=== PATIENT | female | born 1955 | race Caucasian/White ===

== ENCOUNTER 2020-04-18 09:46 | Inpatient (IN) | payer BC ==
[~2020-04-18] VITALS: Ht 165.1 cm; Wt 80.3 kg
[~2020-04-18 09:46] MED LIST: ASPIRIN325 PO; LIPITOR 20 MG T20 M1 PO; NITROGLYCERIN0.4 MG SUBLING; PROTONIX 20 MG20 M1 PO
[2020-04-18 09:47] VITALS: BP 106/64
[2020-04-18 10:14] LABS: ABSOLUTE BASOPHILS 0.1 thou/uL (0.0-0.2); ABSOLUTE EOSINOPHILS 0.1 thou/uL (0.0-0.7); ABSOLUTE LYMPHOCYTES 1.5 thou/uL (0.8-5.3); ABSOLUTE MONOCYTES 0.3 thou/uL (0.0-1.2); ABSOLUTE NEUTROPHILS 4.9 thou/uL (1.6-8.1); EOSINOPHILS 0.9 %; HEMOGLOBIN 14.8 gm/dL (12.0-15.0); LYMPHOCYTES 21.4 %; MCHC 35.4 g/dL (28.0-37.0); MCV 96.2 fL (80.0-100.0); MPV 7.5 fl. (7.2-11.1); NUCLEATED RBCS 0 /100WBC; PLATELET COUNT* 251 thou/uL (150-400); POLYS 71.7 %; RBC 4.36 mil/uL (4.20-5.00); RDW-CV 13.3 % (10.5-14.5); WBC 6.8 thou/uL (4.0-11.0)
[2020-04-18 10:34] LABS: CALCIUM 8.1 mg/dL (8.5-10.1); CREATININE 0.8 mg/dL (0.6-1.3); POTASSIUM 4.3 mmol/L (3.5-5.1)
[2020-04-18 10:48] LABS: APTT 26.3 Seconds (25.0-31.3); PROTIME 10.3 Seconds (9.20-11.50)
[2020-04-18 10:51] LABS: ALBUMIN 3.3 g/dL (3.4-5.0); TOTAL BILIRUBIN 0.5 mg/dL (<0.1-1.0); TOTAL PROTEIN 6.6 g/dL (6.4-8.2)
[2020-04-18] MEDS ORDERED: PREMARIN0.625 MG PO (10:59)
[2020-04-18 12:10] VITALS: BP 100/61
--- NOTE | 2020-04-18 17:12 | EKG ---
[place] [address] ELECTROCARDIOGRAM REPORT Name: CARTERSERGEI PHILIP Room: [address] ADM IN .R.#: [id number] Admission: 04/18/20 Attend Phys: William Agustin, Discharge: Date of : 57 Date of Service: 04/18/20 1003 Report #: [id number] THIS REPORT FOR: //name// [facility] ED Test Date: 2020-04-18 Test Time: 10:03:46 Pat Name: SERGEI CARTER Department: Room: [facility] Gender: F Deck Scaler: OVI : 1955 Requested By: Nathan Valverde Order Number: [id number] MD: Aris Knight Measurements Intervals [place] Rate: 75 P: 29 [place]: 182 QRS: 63 QRSD: 99 T: 105 QT: 444 QTc: 496 Interpretive Statements Sinus rhythm Borderline prolonged QT interval Baseline wander in lead(s) I,II,aVR,aVL Compared to ECG 05/01/2017 21:46:24 No significant changes Electronically Signed On 04-18-2020 17:12:14 CDT by Aris Knight [email or web address] <ELECTRONICALLY SIGNED> By: Aris Knight MD, FAC 04/18/20 1712 02 100 Aris Knight MD, FAC /EPI
[2020-04-18 17:19] VITALS: BP 104/61
[2020-04-18 20:00] VITALS: BP 91/59
[2020-04-19] VITALS (15 sets, daily range): BP systolic 97–146; BP diastolic 55–93
[2020-04-19 05:12] LABS: HEMATOCRIT 39.1 % (37.0-47.0); HEMOGLOBIN 13.7 gm/dL (12.0-15.0); MCHC 35.1 g/dL (28.0-37.0); MCV 96.9 fL (80.0-100.0); RBC 4.03 mil/uL (4.20-5.00); RDW-CV 13.7 % (10.5-14.5); WBC 9.9 thou/uL (4.0-11.0)
[2020-04-19 05:13] LABS: ANION GAP 7 mmol/L (7-16); BUN 14 mg/dL (7-18); CALCIUM 8.2 mg/dL (8.5-10.1); CHLORIDE 104 mmol/L (98-107); CO2 28 mmol/L (21-32); GLUCOSE 92 mg/dL (70-99); POTASSIUM 3.6 mmol/L (3.5-5.1); SODIUM 139 mmol/L (136-145)
[2020-04-19 05:18] LABS: CHOLESTEROL 187 mg/dL (<200); HDL CHOLESTEROL 49 mg/dL (>40); LDL CHOLESTEROL 117 mg/dL (<100); MAGNESIUM 1.8 mg/dL (1.8-2.4); TC:HDL 3.8 Ratio (Not establshd); TRIGLYCERIDE 106 mg/dL (<150); VLDL 21 mg/dL (<40)
[2020-04-19 05:22] LABS: SERUM ASSESSMENT CLEAR
--- NOTE | 2020-04-19 15:12 | CARD ---
[address] [address] CARDIAC CATH REPORT Name: CARTERSERGEI CASTAÑEDA PHILIP Room: [address] ADM IN [facility]#: [id number] Admission: 04/18/20 Attend Phys: William Agustin MD Discharge: Date of : 57 Report #: [id number] THIS REPORT FOR: //name// cc: Анна Lambert MD, Ghazal A. MD ~ APPROVED REPORT Study performed: 04/19/2020 08:15:27 Patient Details Patient Status: In-Patient Room #: The patient is a 65 year-old female Event Personnel Aris Knight Bicycle Inspector, Obie Conteh RN Mandarin Chinese Teacher, Justa Martin RTR Monitor, Deena Winter RTR Scrub, Maggi Rodgers RN Monitor Procedures Performed Art Access - R femoral artery, Left Heart Cath w/or w/o Coronaries , FREDI Place w/wo Plasty Single LAD, Hemostasis w/ Angioseal Indication Non-STEMI Risk Factors Hypercholesterolemia, Tobacco History () Admission/Lab Medications/Medications given during procedure Angiomax IV 12 ml, Angiomax Drip IV 28.01 ml per hr, Aggrastat IV 8.1 ml, Aggrastat IV 14.42 ml per hr, Aspirin PO 162 mg, Effient PO 60 mg Procedure Narrative The patient was brought electively to the Cardiac Catheterization Laboratory and was prepped and draped in a sterile manner. The right femoral was infiltrated with 2% Lidocaine subcutaneous anesthesia. A [place] 6 FR sheath was inserted into the right femoral artery. Coronary angiography was performed using coronary diagnostic catheters. The right coronary system was accessed and visualized with a 6F JR4 catheter. The left coronary system was accessed and visualized with a 6F JL4 catheter. The left ventricle was accessed and visualized with a 5F Straight Pigtail catheter. Left ventricular/Aortic Valve gradient assessed [place] [address] CARDIAC CATH REPORT Name: SERGEI CARTER Room: [address] IN ..#: [id number] Admission: 04/18/20 Attend Phys: William Agustin MD Discharge: Date of : 57 Report #: [id number] Left ventriculogram was performed in GASTELUM projection. Pre-demployment femoral angiogram was performed . Closure device was deployed with a 6 Fr Angioseal STS 6Fr. The patient tolerated the procedure well and there were no complications associated with the procedure. There was no hematoma. Intraoperative Conscious Sedation Sedation start time: 09:42 Case end Time: 11:23 Fentanyl 75 mcg Versed 3 mg Fluoro Time: 29.5 minutes Dose: DAP 848301 cGycm2 2709.73 mGy Contrast Type and Amount: Visipaque 350 ml Coronary Angiography The patient's coronary anatomy is right dominant. Diagnostic Cath Left Main 0% narrowing LAD 75% proximal with 95% mid LAD stenosis, the mid LAD lesion characterized by an ulcerated plaque with local thrombus at the site Circumflex 90% mid and distal circumflex stenosis Right Coronary Large dominant vessel with 80% proximal and 40% distal stenosis Left Ventriculography The left ventricle is normal in size with normal contractility. The left ventricular ejection fraction is estimated to be 60%. Left ventricular wall motion abnormalities are not present. There is no mitral insufficiency. Hemodynamics The aortic pressure is 110/59 mmHg with a mean of 80 mmHg. The left ventricular pressure is 111/-3 mmHg with a mean of mmHg. The left ventricular end diastolic pressure is 12 mmHg. There was no gradient across the aortic valve upon pullback. Pullback from the left ventricle to the aorta revealed no gradient across the aortic valve. PCI Technique Lesion Anticoagulation was achieved with Angiomax Drip. Patient was preloaded with Angiomax IV 12 ml. Percutaneous coronary intervention was performed on the mid left anterior descending artery segment. The lesion stenosis prior to intervention was 95% with VIRI 3 flow. A 6[place] [address] CARDIAC CATH REPORT Name: EMMASERGEIALBER PALACIOS Room: [address] IN M.R.#: [id number] Admission: 04/18/20 Attend Phys: William Agustin MD Discharge: Date of : 57 Report #: [id number] XB LAD 3.5 Guide Catheter was used to engage the lm ostium. A ProwaterFlex 180CM Interventional Guidewire was used to cross the lesion. BALLOON DILATION A Balloon catheter Mini Trek RX 2.0 X 12 was inserted and inflated up to 10.00atm for 13seconds. Additional Inflation: 18.00atm for 11seconds. NC Euphora balloon catheter inserted and inflated up to 14 sam for 15 seconds. Additional Inflation: 16.00 sam for 11 seconds. Additional Inflation: 16.00 sam for 10 seconds. STENT DEPLOYMENT A drug-eluting stent Xience Sanjana 2.5X15mm was inserted and inflated up to 10.00atm for 13seconds. Additional Inflation: 12.00atm for 7seconds. Additional Inflation: 12.00atm for 7seconds. POST STENT DEPLOYMENT BALLOON DILATION A Balloon catheter NC Euphora 2.5x8 was inserted and inflated up to 14.00atm for 11seconds. Additional Inflation: 15.00atm for 10seconds. Additional Inflation: 16.00atm for 9seconds. Another Drug eluting stent Brennen RX Stent 2.5x12mm was inserted and inflated up to 12.00 sam for 11 seconds. Additional Inflation: 15.00 sam for 11 seconds. Then NC Euphora 2.5x8 was inserted again and inflated up to 15 sam for 10 seconds. Additional Inflation: 17 sam for 7 seconds. Final angiography reveals 10 % stenosis with VIRI 3 flow. COMMENTS PCI to the mid LAD with secondary complex by virtue of the ulcerated plaque in the mid LAD with severe eccentric stenosis and local thrombus at the site with extreme prothrombotic tendency during the procedure PCI Technique Lesion 2 Percutaneous Coronary Intervention was performed on the proximal left anterior descending artery segment. Patient was preloaded with Angiomax IV 12 ml. The lesion stenosis prior to intervention was 75% with VIRI 2 flow. A 6F XB LAD 3.5 Guide Catheter was used to engage the lm ostium. A ProwaterFlex 180CM Interventional Guidewire was used to cross the lesion. Balloon Dilation A Balloon catheter Mini Trek RX 2.0 X 12 was inserted and inflated up to 18.00atm for 12seconds. Additional Inflation: 18.00atm for 10seconds. NC Euphora 2.5x12 balloon catheter was inserted and [facility] [address] [place] [address] CARDIAC CATH REPORT Name: CARTERSERGEIALBER PALACIOS Room: [address] ADM IN M.R.#: [id number] Admission: 04/18/20 Attend Phys: William Agustin MD Discharge: Date of : 57 Report #: [id number] inflated up to 17 sam for 7 seconds Stent Deployment A drug-eluting stent Brennen RX Stent 2.5X12mm was inserted and inflated up to 12.00atm for 9seconds. Additional Inflation: 15.00atm for 9seconds. Post Stent Deployment Balloon Dilation A Balloon catheter NC Euphora 2.5x8 was inserted and inflated up to 18.00atm for 12seconds. Final angiography reveals 0 % stenosis with VIRI 3 flow. Conclusion 1. Recent non-STEMI 2. Severe coronary artery disease characterized by the following: A 75% proximal and 95% eccentric mid LAD stenosis with plaque ulceration and local thrombus at the mid LAD site B 90% mid and distal circumflex narrowings C large dominant right coronary with 80% proximal and 40% distal narrowing 2. Normal left ventricular systolic function, estimated ejection fraction being 60% 3. Normal left-sided hemodynamic study 4. Successful PCI with deployment of sequential drug-eluting stents at the sites of 75% proximal and 95% eccentric mid LAD stenosis with 0 and 10% residual narrowings and VIRI-3 flow to the distal vessel Recommendations Cardiac Rehabilitation Referral Cardiac Risk Reduction Program Medications Administered Aspirin (any) Prasugrel Cardiac Rehabilitation Referral [address] [address] CARDIAC CATH REPORT Name: SERGEI CARTER Room: 006 ADM IN M.R.#: [id number] Admission: 04/18/20 Attend Phys: William Agustin MD Discharge: Date of : 57 Report #: [id number] Diagnostic Cath Approved by: Aris Knight MD Date/Time: 04/19/2020 15:09:20 <ELECTRONICALLY SIGNED> By: Aris Knight MD, FACC 04/19/20 1512 11 1512Jorobi Knight MD, FACC /INF
--- NOTE | 2020-04-19 15:54 | 2DMMODE ---
[place] [address] 2 D/M-MODE ECHOCARDIOGRAM Name: SERGEI CARTER PHILIP Room: [address] ADM IN M.R.#: [id number] Admission: 04/18/20 Attend Phys: William gAustin, Discharge: Date of : 57 Date of Service: 04/19/20 1554 Report #: [id number] THIS REPORT FOR: cc: Анна Lambert MD, Ghazal A. MD Holkins,Aris Wilder MD [facility] ~ APPROVED REPORT Study performed: 04/19/2020 13:56:51 EXAM: Comprehensive 2D, Doppler, and color-flow Echocardiogram Patient Location: Bedside BSA: 1.87 HR: 104 bpm BP: 94/60 mmHg Other Information Study Quality: Technically Limited Technically limited study due to inability to position patient. Indications Chest Pain [place] 2D Dimensions IVSd: 12.18 (7-11mm) LVOT Diam: 18.90 (18-24mm) LVDd: 50.13 mm PWd: 12.89 (7-11mm) Ascending Ao: 29.55 (22-36mm) LVDs: 30.85 (25-40mm) Aortic Root: 33.21 mm Volumes Left Atrial Volume (Systole) LA ESV Index: 31.20 mL/m2 Aortic Valve AoV Peak Yordan.: 1.03 m/s AO Peak Gr.: 4.27 mmHg LVOT Max P.82 mmHg AO Mean Gr.: 2.52 mmHg LVOT Mean P.92 mmHg LVOT Max V: 0.67 m/s AO V2 VTI: 19.84 cm LVOT Mean V: 0.44 m/s DENISSE (VTI): 2.10 cm2 LVOT V1 VTI: 14.87 [place] [address] 2 D/M-MODE ECHOCARDIOGRAM Name: SERGEI CARTER Room: [address] IN .R.#: [id number] Admission: 04/18/20 Attend Phys: William Agustin, Discharge: Date of : 57 Date of Service: 04/19/20 1554 Report #: [id number] Mitral Valve E/A Ratio: 0.70 MV Decel. Time: 238.27 ms MV E Max Yordan.: 0.59 m/s MV PHT: 69.10 ms MVA (PHT): 3.18 cm2 TDI E/Lateral E': 7.38 E/Medial E': 9.83 Medial E' Yordan.: 0.06 m/s Lateral E' Yordan.: 0.08 m/s Pulmonary Valve PV Peak Yordan.: 0.69 m/s PV Peak Gr.: 1.93 mmHg Tricuspid Valve RAP Estimate: 20.00 mmHg TR Peak Gr.: 14.42 mmHg RVSP: 34.42 mmHg PA Pressure: 34.42 mmHg Left Ventricle The left ventricle is normal size. There is normal LV segmental wall motion. There is normal left ventricular wall thickness. The left ventricular systolic function is normal. The left ventricular ejection fraction is within the normal range. LVEF is 55%. Grade I - abnormal relaxation pattern. Right Ventricle The right ventricle is normal size. The right ventricular systolic function is normal. Atria The left atrium size is normal. The right atrium size is normal. Aortic Valve The aortic valve is normal in structure. No aortic regurgitation is present. There is no aortic valvular stenosis. Mitral Valve The mitral valve is normal in structure. There is no mitral valve regurgitation noted. No evidence of mitral valve stenosis. Tricuspid Valve The tricuspid valve [place] [address] 2 D/M-MODE ECHOCARDIOGRAM Name: SERGEI CARTER Room: [address] IN [facility].#: [id number] Admission: 04/18/20 Attend Phys: William Agustin, Discharge: Date of : 57 Date of Service: 04/19/20 1554 Report #: [id number] regurgitation. Pulmonic Valve The pulmonary valve is normal in structure. There is no pulmonic valvular regurgitation. Great Vessels The aortic root is normal in size. IVC is normal in size and collapses >50% with inspiration. Pericardium There is no pericardial effusion. <Conclusion> The left ventricle is normal size. There is normal left ventricular wall thickness. The left ventricular systolic function is normal. The left ventricular ejection fraction is within the normal range. LVEF is 55%. Grade I - abnormal relaxation pattern. The right ventricle is normal size. The left atrium size is normal. The aortic valve is normal in structure. The mitral valve is normal in structure. The tricuspid valve is normal in structure. IVC is normal in size and collapses >50% with inspiration. There is no pericardial effusion. There is normal LV segmental wall motion. <ELECTRONICALLY SIGNED> By: Aris Knight MD, FACC 04/19/20 1554 1554 1554 Aris Knight MD, FACC /INF
--- NOTE | 2020-04-19 16:15 | EKG ---
[place] [address] ELECTROCARDIOGRAM REPORT Name: CARTERSERGEI PHILIP Room: [address] ADM IN M.R.#: [id number] Admission: 04/18/20 Attend Phys: William Agustin, Discharge: Date of : 57 Date of Service: 04/19/20 0058 Report #: [id number] THIS REPORT FOR: //name// [facility] Test Date: 2020-04-19 Test Time: 00:58:21 Pat Name: SERGEI CARTER Department: Room: [facility] Gender: F Paperback Machine Operator: MS : 1955 Requested By: Chris Pacheco Order Number: [id number] Pineda MD: Aris Knight Measurements Intervals [place] Rate: 109 P: 14 VT: 173 QRS: 76 QRSD: 97 T: 107 QT: 344 QTc: 464 Interpretive Statements Sinus tachycardia Borderline repolarization abnormality Compared to ECG 04/18/2020 10:03:46 Sinus rate has increased Electronically Signed On 04-19-2020 16:14:52 CDT by Aris Knight [email or web address] <ELECTRONICALLY SIGNED> By: Aris Knight MD, [facility] 04/19/20 1614 0058 0058 Aris Knight MD, [facility] /EPI
--- NOTE | 2020-04-19 16:23 | EKG ---
[place] [address] ELECTROCARDIOGRAM REPORT Name: CARTERSERGEIALBER PALACIOS Room: [address] ADM IN M.R.#: [id number] Admission: 04/18/20 Attend Phys: William Agustin, Discharge: Date of : 57 Date of Service: 04/19/20 1239 Report #: [id number] THIS REPORT FOR: //name// [facility] Test Date: 2020-04-19 Test Time: 12:39:43 Pat Name: SERGEI CARTER Department: Room: [address] Gender: F Jet Pilot: : 1955 Requested By: Aris Knight Order Number: [id number] Reading MD: Aris Knight Measurements Intervals [place] Rate: 75 P: 36 [place]: 168 QRS: 81 QRSD: 98 T: 94 QT: 408 QTc: 456 Interpretive Statements Sinus rhythm Borderline right axis deviation Borderline repolarization abnormality; consider anterior ischemia Baseline wander in lead(s) II,III,aVL,aVF Compared to ECG 04/19/2020 00:58:21 Sinus tachycardia no longer present Anterolateral ST segment depression is more notable Electronically Signed On 04-19-2020 16:23:47 CDT by Aris Knight [email or web address] <ELECTRONICALLY SIGNED> By: Aris Knight MD, [facility] 04/19/20 1623 1239 1239 Aris Knight MD, [facility] /EPI
[2020-04-20 03:24] LABS: HEMATOCRIT 36.4 % (37.0-47.0); HEMOGLOBIN 13.1 gm/dL (12.0-15.0); MCH 34.4 pg (26.0-34.0); MCHC 35.9 g/dL (28.0-37.0); MCV 95.6 fL (80.0-100.0); MPV 7.5 fl. (7.2-11.1); RBC 3.81 mil/uL (4.20-5.00); RDW-CV 13.3 % (10.5-14.5)
[2020-04-20 03:52] LABS: ALBUMIN 2.9 g/dL (3.4-5.0); CALCIUM 8.3 mg/dL (8.5-10.1); CREATININE 0.8 mg/dL (0.6-1.3); POTASSIUM 3.5 mmol/L (3.5-5.1); TOTAL PROTEIN 6.1 g/dL (6.4-8.2)
[2020-04-20 04:13] LABS: TROPONIN-I LEVEL 1.83 ng/mL (<0.06)
[2020-04-20 07:00] VITALS: BP 113/71
[2020-04-20] MEDS ORDERED: EFFIENT10 MG PO (07:26)
[2020-04-20] MEDS ORDERED: ASA81BEC PO (07:26)
[2020-04-20] MEDS ORDERED: METOPROLOL TART25 MG PO (07:26)
[2020-04-20] MEDS ORDERED: LIPITOR40 MG PO (07:26)
[2020-04-20 08:00] VITALS: BP 125/74
[2020-04-20 09:00] VITALS: BP 110/70
[2020-04-20 11:34] VITALS: BP 110/70
[2020-04-20] MEDS ORDERED: NITROSTAT0.4 M1 SUBLING (11:45)
[2020-04-20 12:01] VITALS: BP 110/70
--- NOTE | 2020-04-20 13:56 | EKG ---
[place] [address] ELECTROCARDIOGRAM REPORT Name: EMMASERGEIALBER PALACIOS Room: [address] ADM IN M.R.#: [id number] Admission: 04/18/20 Attend Phys: William Agustin, Discharge: Date of : 57 Date of Service: 04/20/20 0308 Report #: [id number] THIS REPORT FOR: //name// [facility] Test Date: 2020-04-20 Test Time: 03:08:31 Pat Name: SERGEI CARTER Department: Room: [address] Gender: F Escrow Clerk: ERICK : 1955 Requested By: Aris Knight Order Number: [id number] Reading MD: Aris Knight Measurements Intervals [place] Rate: 75 P: 36 MD: 168 QRS: 90 QRSD: 108 T: 103 QT: 419 QTc: 468 Interpretive Statements Sinus rhythm Atrial premature complex Borderline right axis deviation Nonspecific repol abnormality, diffuse leads Baseline wander in lead(s) II,III,aVF Compared to ECG 04/19/2020 12:39:43 Atrial premature complex(es) now present Ischemic ST-T changes have diminished slightly Electronically Signed On 04-20-2020 13:56:42 CDT by Aris Knight [email or web address] <ELECTRONICALLY SIGNED> By: Aris Knight MD, [facility] 04/20/20 1356 7 7 Aris Knight MD, [facility] /EPI
== END 2020-04-20 11:40 | disposition home or self-care (01) | DRG 246 ==
LOC: M.ERS 09:46 → M.2W 10:20 → M.TBA-ER 10:20 → M.ICU 10:20 → M.2W 12:27 → M.ICU 04-19 11:36
PROVIDERS: Emergency Medicine Emergency Medical Services; Internal Medicine; ADMIT Internal Medicine; ATTEND Internal Medicine
PROC: B41FYZZ Fluoroscopy of Right Lower Extremity Arteries using Other Contrast (ICD-10-PCS; principal; 2020-04-19)
PROC: 4A023N7 Measurement of Cardiac Sampling and Pressure, Left Heart, Percutaneous Approach (ICD-10-PCS; principal; 2020-04-19)
PROC: B215YZZ Fluoroscopy of Left Heart using Other Contrast (ICD-10-PCS; principal; 2020-04-19)
PROC: B211YZZ Fluoroscopy of Multiple Coronary Arteries using Other Contrast (ICD-10-PCS; principal; 2020-04-19)
PROC: 027035Z Dilation of Coronary Artery, One Artery with Two Drug-eluting Intraluminal Devices, Percutaneous Approach (ICD-10-PCS; principal; 2020-04-19)
DX: I21.4 Non-ST elevation (NSTEMI) myocardial infarction (principal); I50.43 Acute on chronic combined systolic (congestive) and diastolic (congestive) heart failure; E44.1 Mild protein-calorie malnutrition; F17.210 Nicotine dependence, cigarettes, uncomplicated; I25.10 Atherosclerotic heart disease of native coronary artery without angina pectoris; E78.5 Hyperlipidemia, unspecified; N95.9 Unspecified menopausal and perimenopausal disorder; Z20.828 Contact with and (suspected) exposure to other viral communicable diseases; Z79.82 Long term (current) use of aspirin; Z79.899 Other long term (current) drug therapy; Z90.710 Acquired absence of both cervix and uterus; Z86.73 Personal history of transient ischemic attack (TIA), and cerebral infarction without residual deficits; Z68.29 Body mass index [BMI] 29.0-29.9, adult; Z71.6 Tobacco abuse counseling; Z82.49 Family history of ischemic heart disease and other diseases of the circulatory system

== ENCOUNTER 2020-05-02 10:31 | Observation (INO) | payer BC ==
[2020-05-02] VITALS (19 sets, daily range): BP systolic 117–153; BP diastolic 62–86
[~2020-05-02] VITALS: Ht 165.1 cm; Wt 76.2 kg
[~2020-05-02 10:31] MED LIST changes: +ASA81BEC PO; +EFFIENT10 MG PO; +LIPITOR40 MG PO; +METOPROLOL TART25 MG PO; +NITROSTAT0.4 M1 SUBLING; +PREMARIN0.625 MG PO
[2020-05-02 10:50] LABS: ABSOLUTE BASOPHILS 0.1 thou/uL (0.0-0.2); ABSOLUTE LYMPHOCYTES 1.1 thou/uL (0.8-5.3); ABSOLUTE MONOCYTES 0.3 thou/uL (0.0-1.2); ABSOLUTE NEUTROPHILS 5.2 thou/uL (1.6-8.1); BASOPHILS 1.4 %; EOSINOPHILS 0.7 %; HEMATOCRIT 40.6 % (37.0-47.0); HEMOGLOBIN 14.1 gm/dL (12.0-15.0); LYMPHOCYTES 16.6 %; MCH 33.2 pg (26.0-34.0); MCHC 34.8 g/dL (28.0-37.0); MCV 95.4 fL (80.0-100.0); MONOCYTES 4.9 %; MPV 7.2 fl. (7.2-11.1); NUCLEATED RBCS 0 /100WBC; PLATELET COUNT* 311 thou/uL (150-400); POLYS 76.4 %; RBC 4.26 mil/uL (4.20-5.00); RDW-CV 13.4 % (10.5-14.5); WBC 6.8 thou/uL (4.0-11.0)
[2020-05-02 11:02] LABS: ANION GAP 5 mmol/L (7-16); BUN 15 mg/dL (7-18); CALCIUM 8.9 mg/dL (8.5-10.1); CHLORIDE 104 mmol/L (98-107); CO2 28 mmol/L (21-32); GLUCOSE 95 mg/dL (70-99); POTASSIUM 3.9 mmol/L (3.5-5.1); SODIUM 137 mmol/L (136-145)
[2020-05-02 11:04] LABS: APTT 26.7 Seconds (25.0-31.3); PROTIME 10.6 Seconds (9.20-11.50)
[2020-05-02 11:16] LABS: ALBUMIN 3.4 g/dL (3.4-5.0); ALKALINE PHOSPHATASE 125 U/L (46-116); CK-MB MASS < 0.5 ng/mL (<0.5-3.6); LIPASE 93 U/L (73-393); NT-PRO BRAIN NAT PEPTIDE 491 pg/mL (<300); SGOT 9 U/L (15-37); SGPT 15 U/L (30-65); TOTAL BILIRUBIN 0.8 mg/dL (<0.1-1.0); TOTAL PROTEIN 7.2 g/dL (6.4-8.2)
[2020-05-02] MEDS ORDERED: ASA81BEC PO (13:46)
[2020-05-02] MEDS ORDERED: LIPITOR40 MG PO (13:47)
[2020-05-02] MEDS ORDERED: METOPROLOL TART25 MG PO (13:47)
[2020-05-02] MEDS ORDERED: EFFIENT10 MG PO (13:48)
--- NOTE | 2020-05-02 17:49 | EKG ---
[place] [address] ELECTROCARDIOGRAM REPORT Name: CARTERSERGEI MARIA Room: [place] [address] ADM IN .R.#: [id number] Admission: 05/02/20 Attend Phys: Arnold Diaz Discharge: Date of : 57 Date of Service: 05/02/20 1035 Report #: [id number] THIS REPORT FOR: //name// [facility] ED Test Date: 2020-05-02 Test Time: 10:35:36 Pat Name: SERGEI CARTER Department: Room: [facility] Gender: F Die Developer: : 1955 Requested By: Bruno Rivera Order Number: [id number] MD: Ton Rizvi Measurements Intervals [place] Rate: 70 P: 40 IN: 174 QRS: 62 QRSD: 105 T: 84 QT: 430 QTc: 464 Interpretive Statements Sinus rhythm Multiple premature complexes, vent & supraven Nonspecific repolarization abnormalities Compared to ECG 04/20/2020 03:08:31 Atrial premature complex(es) no longer present Early repolarization no longer present Electronically Signed On 05-02-2020 17:49:09 CDT by Ton Rizvi [email or web address] <ELECTRONICALLY SIGNED> By: Ton Rizvi MD, FACC 05/02/20 1749 1035 1035 Ton Rizvi MD, FACC /EPI
[2020-05-03] VITALS (7 sets, daily range): BP systolic 112–131; BP diastolic 60–75
[2020-05-03 03:36] LABS: HEMATOCRIT 36.4 % (37.0-47.0); HEMOGLOBIN 12.8 gm/dL (12.0-15.0); MCH 33.6 pg (26.0-34.0); MCHC 35.1 g/dL (28.0-37.0); MCV 95.8 fL (80.0-100.0); MPV 7.5 fl. (7.2-11.1); RBC 3.8 mil/uL (4.20-5.00); RDW-CV 13.2 % (10.5-14.5); WBC 9.1 thou/uL (4.0-11.0)
[2020-05-03 03:55] LABS: ALBUMIN 2.9 g/dL (3.4-5.0); CALCIUM 8.5 mg/dL (8.5-10.1); CREATININE 0.8 mg/dL (0.6-1.3); MAGNESIUM 1.8 mg/dL (1.8-2.4); POTASSIUM 3.4 mmol/L (3.5-5.1); TOTAL BILIRUBIN 0.8 mg/dL (<0.1-1.0); TOTAL PROTEIN 6.2 g/dL (6.4-8.2)
[2020-05-03 05:29] LABS: CHOLESTEROL 161 mg/dL (<200); HDL CHOLESTEROL 36 mg/dL (>40); LDL CHOLESTEROL 101 mg/dL (<100); TC:HDL 4.5 Ratio (Not establshd); TRIGLYCERIDE 121 mg/dL (<150); TROPONIN-I LEVEL 0.13 ng/mL (<0.06); VLDL 24 mg/dL (<40)
[2020-05-03 05:33] LABS: SERUM ASSESSMENT CLEAR
--- NOTE | 2020-05-03 09:16 | EKG ---
[place] [address] ELECTROCARDIOGRAM REPORT Name: SERGEI CARTER Room: [address] M.R.#: [id number] Admission: 05/02/20 Attend Phys: Arnold Diaz Discharge: Date of : 57 Date of Service: 05/02/20 213 Report #: [id number] THIS REPORT FOR: //name// [facility] Test Date: 2020-05-02 Test Time: 21:39:05 Pat Name: SERGEI CARTER Department: Room: [facility] Gender: F Paste Up Copy Camera Operator: EE : 1955 Requested By: Aris Knight Order Number: [id number] Pineda MD: Chris Pacheco Measurements Intervals [place] Rate: 62 P: 39 [place]: 171 QRS: 78 QRSD: 108 T: 86 QT: 456 QTc: 463 Interpretive Statements Sinus rhythm Compared to ECG 05/02/2020 10:35:36 pvc and pac no longer seen Electronically Signed On 05-03-2020 9:16:28 CDT by Chris Pacheco [email or web address] <ELECTRONICALLY SIGNED> By: Chris Pacheoc MD, FACC 05/03/20 0916 38 38 Chris Pacheco MD, FAC /EPI
--- NOTE | 2020-05-03 10:47 | CON ---
[address] [address] CONSULTATION Name: SERGEI CARTER Room: [address] M.R.#: [id number] Admission: 05/02/20 Attend Phys: Arnold Sen, Discharge: Date of : 57 Report #: [id number] THIS REPORT FOR: //name// cc: Анна Lambert MD, Ghazal A. MD ~ THIS REPORT FOR: //name// DATE OF SERVICE: 05/02/2020 CARDIOLOGY CONSULTATION HISTORY OF PRESENT ILLNESS: The patient is a pleasant 65-year-old female with complex coronary artery disease, status post recent non-ST segment elevation myocardial infarction interrupted by stenting of the LAD. She also has significant circumflex and right coronary artery stenosis noted at that time. The patient was discharged home on dual antiplatelet therapy as well as her other medications. Since discharge, she has limited activity, has noted some chest discomfort, but nothing as severe as that associated with her acute infarct. She presents today with recurrent chest discomfort in that context. PAST MEDICAL HISTORY: Remarkable for metabolic abnormalities and tobacco habituation with peripheral vascular disease. SOCIAL HISTORY: She is , is a nonsmoker. PHYSICAL EXAMINATION: GENERAL: Reveals a mildly distressed middle-aged female. VITAL SIGNS: Blood pressure 130/70, pulse rate 70, respirations 18 per minute. NECK: Jugular venous pressure is normal. CHEST: Clear. CARDIAC: Reveals normal first and second heart sounds without murmurs or gallops. ABDOMEN: Mildly obese. EXTREMITIES: Without edema with intact femoral, pedal and radial pulses at 1+. EKG reveals sinus rhythm with a minor interventricular conduction delay and no acute ischemic changes. IMPRESSION: 1. Unstable angina. 2. Status post recent non-ST elevation myocardial infarction. 3[place] [address] CONSULTATION Name: CARTERSERGEIALBER PALACIOS Room: [address] Venkat Morillo#: [id number] Admission: 05/02/20 Attend Phys: Arnold Sen, Discharge: Date of : 57 Report #: [id number] 4. Tobacco habituation. RECOMMENDATIONS: I would recommend urgent cardiac catheterization with redefinition of coronary anatomy and consideration of subsequent PCI contingent on the results of that study. Critical care time 42 minutes from 11:00 to 11:42 on 05/02/2020. <ELECTRONICALLY SIGNED> By: Aris Knight MD, FACC 05/03/20 1047 1142 1211Aris Knight MD, FACC /nt
--- NOTE | 2020-05-03 13:06 | EKG ---
[place] [address] ELECTROCARDIOGRAM REPORT Name: SERGEI CARTER Room: [address] M.R.#: [id number] Admission: 05/02/20 Attend Phys: Arnold Diaz Discharge: Date of : 57 Date of Service: 05/03/20 0837 Report #: [id number] THIS REPORT FOR: //name// [facility] Test Date: 2020-05-03 Test Time: 08:37:30 Pat Name: SERGEI CARTER Department: Room: [facility] Gender: F Business Process Manager: : 1955 Requested By: Aris Knight Order Number: [id number] Pineda MD: Chris Pacheco Measurements Intervals [place] Rate: 70 P: 39 [place]: 167 QRS: 54 QRSD: 99 T: 86 QT: 448 QTc: 484 Interpretive Statements Sinus rhythm Compared to ECG 05/02/2020 21:39:05 No significant changes Electronically Signed On 05-03-2020 13:06:28 CDT by Chris Pacheco [email or web address] <ELECTRONICALLY SIGNED> By: Chris Pacheco MD, [facility] 05/03/20 1306 0837 0837 Chris Pacheco MD, [facility] /EPI
--- NOTE | 2020-05-03 17:05 | CARD ---
[address] [address] CARDIAC CATH REPORT Name: SERGEI CARTER Room: [address] Venkat Morillo#: [id number] Admission: 05/02/20 Attend Phys: Arnold Sen, Discharge: 05/03/20 Date of : 57 Report #: [id number] THIS REPORT FOR: //name// cc: Анна Lambert MD, Ghazal A. MD ~ APPROVED REPORT Study performed: 05/02/2020 16:29:15 Patient Details Patient Status: ED Room #: The patient is a 65 year-old female Event Personnel Aris Knight Transmitter Supervisor, Obie Conteh RN Electrician Shop, Nava Peterson RN Monitor, William Carr CORSET FITTER Scrub Procedures Performed Art Access - L femoral artery* Left Heart Cath w/or w/o Coronaries LHC FREDI Place w/wo Plasty Single CIRC FREDI Place w/wo Plasty Single LAD FREDI Place w/wo Plasty Single RCA Hemostasis w/ Mynx Indication Unstable angina , Chest pain Risk Factors Hypercholesterolemia, Hypertension Previous Procedures/Diagnoses Previous PCI Admission/Lab Medications/Medications given during procedure Aspirin, Thrombin Inhibitors, Platelet Aff. Inhib., Effient PO 30 mg, Aspirin PO 162 mg, Angiomax IV 14 ml, Angiomax Drip IV 26.67 ml per hr Procedure Narrative The patient was brought urgently to the Cardiac Catheterization Laboratory and was prepped and draped in a sterile manner. The left femoral was infiltrated with 2% Lidocaine subcutaneous anesthesia. The left femoral accessed via ultrasound guidance. A 6Fr [place] sheath was inserted into the left femoral artery. Coronary angiography was performed using coronary [place] [address] CARDIAC CATH REPORT Name: SERGEI CARTER Room: [address]#: [id number] Admission: 05/02/20 Attend Phys: Arnold Sen, Discharge: 05/03/20 Date of : 57 Report #: [id number] right coronary system was accessed and visualized with a JR4 6fr catheter. The left coronary system was accessed and visualized with a JL4 6fr catheter. The left ventricle was accessed and visualized with a Diagnostic catheter. Left ventricular/Aortic Valve gradient assessed via catheter pullback. Closure device was deployed with a 6 Fr MynxGrip. The patient tolerated the procedure well and there were no complications associated with the procedure. There was no hematoma. Intraoperative Conscious Sedation Sedation start time: 5:15 Case end Time: 6:28 Fentanyl 25.0 mcg Versed 2.0 mg Fluoro Time: 20.9 minutes Dose: 2110 mGy Contrast Type and Amount: Visipaque 340 ml Coronary Angiography The patient's coronary anatomy is right dominant. Diagnostic Cath Left Main 0% narrowing LAD 75% proximal with 50% mid vessel stenosis Circumflex 40% proximal narrowing with 90% mid vessel stenosis and 75% distal narrowing Right Coronary 90% proximal stenosis with 40% mid and distal narrowing Left Ventriculography Left Ventriculography was not performed. Hemodynamics The aortic pressure is 121/54 mmHg with a mean of 77 mmHg. The left ventricular pressure is 126/1 mmHg with a mean of mmHg. The left ventricular end diastolic pressure is 15 mmHg. Pullback from the left ventricle to the aorta revealed no gradient across the aortic valve. PCI Technique Lesion Anticoagulation was achieved with Angiomax. Percutaneous coronary intervention was performed on the proximal right coronary artery. The lesion stenosis prior to intervention was 90% with VIRI 3 flow. A 6F 3DRC Guide Catheter was used to engage the ostium. A ProwaterFlex 180CM Interventional Guidewire was [place] [address] CARDIAC CATH REPORT Name: SERGEI CARTER PHILIP [address]: [address]#: [id number] Admission: 05/02/20 Attend Phys: Arnold Sen, Discharge: 05/03/20 Date of : 57 Report #: [id number] BALLOON DILATION A Balloon catheter Trek RX 2.5 X 12 was inserted and inflated up to 14.00atm for 10seconds. STENT DEPLOYMENT A drug-eluting stent [place] RX Stent 3.0X18mm was inserted and inflated up to 15.00atm for 10seconds. Additional Inflation: 17.00atm for 7seconds. Additional Inflation: 18.00atm for 7seconds. Final angiography reveals 0 % stenosis with VIRI 3 flow. PCI Technique Lesion 2 Percutaneous Coronary Intervention was performed on the proximal left anterior descending artery segment. The lesion stenosis prior to intervention was 75% with VIRI 3 flow. A 6FR [place] EBU 3.5 Guide Catheter was used to engage the ostium. A BMW 190cm Interventional Guidewire was used to cross the lesion. Balloon Dilation A Balloon catheter [place] Trek RX 2.5 X 8 was inserted and inflated up to 16.00atm for 7seconds. Additional Inflation: 20.00atm for 7seconds. Stent Deployment A drug-eluting stent NC Trek RX 2.5 X 8 was inserted and inflated up to 15.00atm for 8seconds. Additional Inflation: 18.00atm for 7seconds. Final angiography reveals 10 % stenosis with VIRI 3 flow. PCI Technique Lesion 3 Percutaneous Coronary Intervention was performed on the mid circumflex artery segment. The lesion stenosis prior to intervention was 90% with VIRI 3 flow. A 6FR [place] EBU 3.5 Guide Catheter was used to engage the ostium. A BMW 190cm Interventional Guidewire was used to cross the lesion. Balloon Dilation A Balloon catheter Mini Trek RX 1.5 X 12 was inserted and inflated up to 16.00atm for 9seconds. Additional Inflation: 18.00atm for 7seconds. Stent Deployment A drug-eluting stent [place] RX Stent 2.0X12mm was inserted and inflated up to 7.00atm for 9seconds. Additional Inflation: 8atm for 7seconds. [address] [address] CARDIAC CATH REPORT Name: SERGEI CARTER Room: [address] Venkat Morillo#: [id number] Admission: 05/02/20 Attend Phys: Arnold Sen, Discharge: 05/03/20 Date of : 57 Report #: [id number] Post Stent Deployment Balloon Dilation A Balloon catheter [employer] RX 2.0x6 was inserted and inflated up to 12.00atm for 6seconds. Additional Inflation: 12.00atm for 9seconds. Additional Inflation: 12 sam for 9 seconds. Final angiography reveals 10 % stenosis with VIRI 3 flow. Conclusion 1. Significant multivessel coronary artery disease characterized by the following: A 75% proximal with 50% mid LAD stenosis B 90% stenosis of the midportion of the nondominant circumflex C 90% stenosis of the proximal portion of the large dominant right coronary artery 2. Mild elevation of left ventricular end-diastolic pressure at rest 3. Successful PCI with deployment of drug-eluting stent at the site of 90% proximal right coronary stenosis with 0% residual narrowing and VIRI-3 flow the distal vessel 4. Successful PCI with deployment of a drug-eluting stent at site of 75% proximal LAD stenosis with 10% residual narrowing and VIRI-3 flow to the distal vessel 5. Successful PCI with deployment of drug-eluting stent at the site of 90% mid circumflex stenosis with 10% residual narrowing and VIRI-3 flow to the distal vessel Recommendations Cardiac Risk Reduction Program Aggressive Medical Therapy Medications Administered Aspirin (any) [place] [address] CARDIAC CATH REPORT Name: SERGEI CARTER Room: [address] Venkat Morillo#: [id number] Admission: 05/02/20 Attend Phys: Arnold Sen, Discharge: 05/03/20 Date of : 57 Report #: [id number] Diagnostic Cath Approved by: Aris Knight MD Date/Time: 05/03/2020 17:01:55 <ELECTRONICALLY SIGNED> By: Aris Knight MD, FACC 05/03/201704 04 04Aris Knight MD, FACC /INF
== END 2020-05-03 13:45 | disposition home or self-care (01) ==
LOC: M.ERS 10:31 → M.TBA-ER 11:49 → M.2W 11:49 → M.TBA-ER 11:49 → M.2W 20:04
PROVIDERS: Family Medicine; Internal Medicine; ADMIT Family Medicine; ATTEND Family Medicine
DX: I25.110 Atherosclerotic heart disease of native coronary artery with unstable angina pectoris (principal); I21.4 Non-ST elevation (NSTEMI) myocardial infarction; E78.5 Hyperlipidemia, unspecified; I50.33 Acute on chronic diastolic (congestive) heart failure; J43.2 Centrilobular emphysema; F17.210 Nicotine dependence, cigarettes, uncomplicated; Z79.82 Long term (current) use of aspirin; Z79.899 Other long term (current) drug therapy; Z20.828 Contact with and (suspected) exposure to other viral communicable diseases